=== PATIENT | male | born 1950 | race Caucasian/White ===

== ENCOUNTER → 2016-04-25 | Day surgery (SDC) | payer BC ==
[2016-04-02 09:31] VITALS: Ht 177.8 cm; Wt 109.1 kg
[~2016-04-25] VITALS: Ht 177.8 cm; Wt 109.1 kg
[~2016-04-25] MED LIST: AMLO-110 PO; ASPI81CH8 PO; ATOR10TA88 PO; BUPIVACAINE 0.25% 2.5MG/ML PF 10 ML VIAL INFIL ONE; GLC/500 PO; METF500T5 PO; MULT-190 PO; NRN/300 PO; QUIN40TA PO
--- NOTE | 2016-04-25 12:49 | History & Physical Bridge - [place] ---
H&P Re-Evaluation Bridge Note: I have examined the patient, reviewed the History & Physical and in the interval since the performance of the History & Physical I have noted the following changes of clinical significance: No changes noted
[2016-04-25] MEDS: LIDOCAINE HCL 1% 20 ML VIAL ONE (13:21)
[2016-04-25 13:50] VITALS: TEMP 36.7
--- NOTE | 2016-04-25 13:59 | Discharge Instructions ---
Discharge Instructions Visit Reason for Visit: Low Back Pain Discharge Discharge Diagnosis / Problem: low back pain Discharge Goals Goal(s): Decrease discomfort, Improve function Activity Recommendations Activity Limitations: resume your previous activity Anesthesia . Post Anesthesia Instructions: If you have had General Anesthesia or IV Sedation: * Do not drive today. * Resume driving when surgeon permits. * Do not make important decisions or sign legal documents today. * Call surgeon for: 1. Temperature elevations greater than 101 degrees F. 2. Uncontrollable pain. 3. Excessive bleeding. 4. Persistent nausea and vomiting. 5. Medication intolerance (nausea, vomiting or rash). * For nausea and vomiting use only clear liquids such as: tea, soda, bouillon until nausea subsides, then gradually increase diet as tolerated. * If you have any concerns or questions, call your surgeon's office. If physician is unavailable and it is an emergency, call 911 or go to the nearest emergency room. . Diet Recommendations Recommended Home Diet: resume previous diet Procedures Procedures Performed: Bilateral L4-5 Radio Frequency Lesioning Pending Studies Studies pending at discharge: no Medical Emergencies . Who to Call and When: Medical Emergencies: If at any time you feel your situation is an emergency, please call 911 immediately. . Non-Emergent Contact Non-Emergency issues call your: Specialist . . "Provider Documentation" section prepared by Nate Hobbs.
[2016-04-25 14:02] VITALS: BP 141/86; PULSE 61; O2SAT 95
--- NOTE | 2016-04-25 15:07 | OPERATIVE REPORT ---
DATE OF OPERATION: 04/25/2016 PREOPERATIVE DIAGNOSES: Chronic low back pain, bilateral L4-5 facet arthropathy. POSTOPERATIVE DIAGNOSES: Same. PROCEDURE: Bilateral L4-5 radiofrequency denervation under fluoroscopic guidance. INDICATIONS FOR PROCEDURE: The patient is a 66-year-old white male who presents with a 30-year history of low back pain. He has had denervation procedures in the past that have provided him upwards of 10 months of relief. He presents today for a denervation procedure bilaterally at L4-5 which showed significant facet hypertrophy and a joint fluid signal on the imaging studies. PHYSICAL EXAMINATION: GENERAL: Pleasant male, seated comfortably, in no apparent distress. MUSCULOSKELETAL: He has tenderness to palpation of his lower lumbar facet area. He has increased discomfort with extension. He has no problems with flexion. He has normal lower extremity strength. Sensation intact distally at the L4, L5, S1 dermatomes. Maneuvers, negative seated straight leg raises. CONSENT: Verbal and written consent was obtained from the patient. Risks and benefits were reviewed. Risks include but are not limited to abscess and allergic reaction. The patient wishes to proceed. DESCRIPTION OF PROCEDURE: The patient was taken back to the special procedures room of the [facility] where he was maintained in a prone position. Backside was cleansed with Betadine x3 and a dry sterile dressing was applied. Fluoroscope was used to identify the L4-5 transverse processes on the left. The overlying skin was anesthetized with 1.25 mL of lidocaine 1% with a 25-gauge 1.5-inch needle. A 22-gauge 10 cm Pee needle was then contacted the targets at each site. He had sensory stimulation that was felt at a threshold of 0.2 volts at both the L4 and L5 transverse process on the left. Motor stimulation provoked robust paraspinal spasms at L4 and also at L5, nothing down the leg. He underwent anesthetization with 1 mL of lidocaine 1% at each target site and then denervation of 80 degrees 100 seconds x2 at each site and then anesthetization with bupivacaine 1 mL of 0.25% at each site. The right L4 and L5 transverse process junctions were then fluoroscopically identified. The overlying skin was anesthetized with 1.25 mL of lidocaine 1% with a 25-gauge 1.5-inch needle. A 22-gauge 10 cm [place] needle contacted the bony target at each site and he had sensory stimulation of 0.4 millivolts at the L4 transverse process and 0.2 at the L5 transverse process. Motor stimulation provoked again robust paraspinal spasms greater at L4 than L5. He had anesthetization with 1 mL of lidocaine at each site prior to denervation of 80 degrees 100 seconds x2 at each site and then each site was injected with bupivacaine 0.25% 1 mL. Procedure was well tolerated. DISPOSITION: 1. The patient is taken out into the discharge recovery area where he will be discharged home once discharge criteria have been met. 2. Follow up in the [facility] office in 2-4 weeks. I attest to the content of the Intraoperative Record and any orders documented therein. Any exceptio ns are noted below.
== END | disposition home or self-care (01) ==
LOC: X.SURG 12:04
PROVIDERS: ATTEND Physical Medicine & Rehabilitation
DX: M47.817 Spondylosis without myelopathy or radiculopathy, lumbosacral region (principal); G89.29 Other chronic pain; I10 Essential (primary) hypertension; Z79.82 Long term (current) use of aspirin; Z87.891 Personal history of nicotine dependence

== ENCOUNTER → 2016-06-05 | Day surgery (SDC) | payer BC ==
[2016-05-14 15:01] VITALS: Ht 177.8 cm; Wt 109.1 kg
[~2016-06-05] VITALS: Ht 177.8 cm; Wt 109.1 kg
[~2016-06-05] MED LIST changes: -BUPIVACAINE 0.25% 2.5MG/ML PF 10 ML VIAL INFIL ONE; +IOPAMIDOL INJ 61% 15 ML VIAL ONE; +LIDOCAINE HCL 1% MPF 5 ML VIAL ONE; -METF500T5 PO; -MULT-190 PO; -QUIN40TA PO; +SODIUM CHLORIDE 0.9% INJ 10 ML VIAL ONE
[2016-06-05 14:54] VITALS: TEMP 37.4
--- NOTE | 2016-06-05 15:01 | Discharge Instructions ---
Discharge Instructions Date of Service Jun 05, 2016. Visit Reason for Visit: Low Back Pain Discharge Discharge Diagnosis / Problem: right leg pain Discharge Goals Goal(s): Decrease discomfort, Improve function Medications Stopped Medications Name(s): Asa 81 mg daily, last dose Friday06/02/16 Activity Recommendations Activity Limitations: resume your previous activity Anesthesia . Post Anesthesia Instructions: If you have had General Anesthesia or IV Sedation: * Do not drive today. * Resume driving when surgeon permits. * Do not make important decisions or sign legal documents today. * Call surgeon for: 1. Temperature elevations greater than 101 degrees F. 2. Uncontrollable pain. 3. Excessive bleeding. 4. Persistent nausea and vomiting. 5. Medication intolerance (nausea, vomiting or rash). * For nausea and vomiting use only clear liquids such as: tea, soda, bouillon until nausea subsides, then gradually increase diet as tolerated. * If you have any concerns or questions, call your surgeon's office. If physician is unavailable and it is an emergency, call 911 or go to the nearest emergency room. . Diet Recommendations Recommended Home Diet: resume previous diet Procedures Procedures Performed: LUMBAR EPIDURAL STEROID INJECTION Pending Studies Studies pending at discharge: no Medical Emergencies . Who to Call and When: Medical Emergencies: If at any time you feel your situation is an emergency, please call 911 immediately. . Non-Emergent Contact Non-Emergency issues call your: Specialist . . "Provider Documentation" section prepared by Nate Hobbs.
[2016-06-05 15:08] VITALS: BP 146/86; PULSE 58; O2SAT 94
--- NOTE | 2016-06-05 16:01 | OPERATIVE REPORT ---
DATE OF OPERATION: 06/05/2016 PREOPERATIVE DIAGNOSES: Lumbar stenosis with a right L5 radiculopathy and stenosis at L4-L5. POSTOPERATIVE DIAGNOSES: Same. PROCEDURE: Right paramedian L4-L5 interlaminar epidural steroid injection under fluoroscopic guidance. INDICATIONS: The patient is a 66-year-old white male who presents today for an epidural injection. He received a facet denervation, reported that more than half the pain was gone from the left side. The right side was rather unchanged. He is describing more radicular sensation down the right side and he was seen by his surgeon in [place] in followup and it was suggested that he undergo an epidural as it may have been radicular based pain on this side more facet on the left. He presents today for a lumbar epidural steroid injection to provide him with relief of radicular pain. PHYSICAL EXAMINATION: GENERAL: Pleasant male seated comfortably, in no apparent distress. MUSCULOSKELETAL: He had limitations and reproduction of pain into the back and buttocks with extension. No problems with flexion. He had normal lower extremity strength. Negative seated straight leg raises, intact sensation distally at the L4, L5, S1 dermatomes. CONSENT: Verbal and written consent was obtained from the patient. Risks and benefits were reviewed. Risks include, but are not limited to epidural abscess, epidural hematoma, allergic reaction, and dural puncture. The patient wishes to proceed. DESCRIPTION OF PROCEDURE: The patient was taken back to the special procedures room of the [facility], where he was maintained in a prone position. Backside was cleansed with Betadine x3 and a dry sterile dressing was applied. Fluoroscope was used to obtain a image of the back. The overlying area at the L4-L5 interlaminar space on the right side was then anesthetized with 4 mL of lidocaine 1% with a 25-gauge 1.5-inch needle. A 22-gauge 3.5-inch Tuohy needle was then directed down towards the intralaminar space. It was advanced under lateral fluoroscopic guidance and loss of resistance was noted at a depth of 7.5 to almost 8 cm. Isovue-300 contrast 1 mL was injected in which demonstrated epidural uptake pattern, which was confirmed with both AP and lateral views. He then underwent injection after negative aspiration of 40 mg of Depo-Medrol and 4 mL of preservative free sodium chloride. Injection was well tolerated. DISPOSITION: 1. The patient is taken out into the discharge recovery area, where he will be discharged home once discharge criteria have been met. 2. Follow up in the [facility] office in 2-4 weeks. I attest to the content of the Intraoperative Record and any orders documented therein. Any exceptio ns are noted below.
== END | disposition home or self-care (01) ==
LOC: X.SURG 13:37
PROVIDERS: ATTEND Physical Medicine & Rehabilitation
DX: M48.06 Spinal stenosis, lumbar region (principal); M54.16 Radiculopathy, lumbar region

== ENCOUNTER → 2016-10-09 | Day surgery (SDC) | payer BC ==
[2016-09-19 08:40] VITALS: Ht 177.8 cm; Wt 109.1 kg
[~2016-10-09] VITALS: Ht 177.8 cm; Wt 109.1 kg
[~2016-10-09] MED LIST changes: -NRN/300 PO
[2016-10-09 13:52] VITALS: TEMP 37
--- NOTE | 2016-10-09 13:58 | Discharge Instructions ---
Discharge Instructions Date of Service Oct 09, 2016. Visit Reason for Visit: Lumbar Radiculopathy Discharge Discharge Diagnosis / Problem: low back pain Discharge Goals Goal(s): Decrease discomfort, Improve function Medications Stopped Medications Name(s): ASA last dose 6 days ago Activity Recommendations Activity Limitations: resume your previous activity Anesthesia . Post Anesthesia Instructions: If you have had General Anesthesia or IV Sedation: * Do not drive today. * Resume driving when surgeon permits. * Do not make important decisions or sign legal documents today. * Call surgeon for: 1. Temperature elevations greater than 101 degrees F. 2. Uncontrollable pain. 3. Excessive bleeding. 4. Persistent nausea and vomiting. 5. Medication intolerance (nausea, vomiting or rash). * For nausea and vomiting use only clear liquids such as: tea, soda, bouillon until nausea subsides, then gradually increase diet as tolerated. * If you have any concerns or questions, call your surgeon's office. If physician is unavailable and it is an emergency, call 911 or go to the nearest emergency room. . Diet Recommendations Recommended Home Diet: resume previous diet Procedures Procedures Performed: Lumbar Epidural Steroid Injection Pending Studies Studies pending at discharge: no Medical Emergencies . Who to Call and When: Medical Emergencies: If at any time you feel your situation is an emergency, please call 911 immediately. . Non-Emergent Contact Non-Emergency issues call your: Specialist . . "Provider Documentation" section prepared by Nate Hobbs. .
[2016-10-09 14:04] VITALS: BP 130/79; PULSE 58; O2SAT 95
--- NOTE | 2016-10-09 14:14 | OPERATIVE REPORT ---
DATE OF OPERATION: 10/09/2016 PREOPERATIVE DIAGNOSES: Chronic lumbar radiculopathy, right side; L4-L5 disk disease and L5-S1 disk disease. POSTOPERATIVE DIAGNOSES: Same. PROCEDURE: Right paramedian L5-S1 intralaminar epidural steroid injection under fluoroscopic guidance. INDICATIONS: The patient is a 66-year-old white male who has had an epidural steroid injection done as well as denervation with 75% improvement of his pain. He was evaluated by a sales specialist in [place], Dr. Felix, who felt that another epidural could provide him with additional relief. He presents today for an epidural steroid injection to provide him with hopeful additional relief. PHYSICAL EXAMINATION: Pleasant male seated comfortably. He has no tenderness to palpation of his lumbar paraspinal muscles. No issues with forward flexion or extension. He has no weakness and intact sensation with negative seated straight leg raises. CONSENT: Verbal and written consent was obtained from the patient. Risks and benefits were reviewed. Risks include, but are not limited to epidural abscess, epidural hematoma, allergic reaction, and dural puncture. The patient wishes to proceed. DESCRIPTION OF PROCEDURE: The patient was taken back to the special procedures room of the [facility], where he was maintained in a prone position. Backside was cleansed with Betadine x3 and a dry sterile dressing was applied. Fluoroscope was used to identify the L5-S1 intralaminar space. Overlying skin on the right side was anesthetized with 4 mL of lidocaine 1% with a 25-gauge 1-1/2 inch needle. A 22-gauge 3-1/2 inch Tuohy needle was then directed down towards the intralaminar space. It was advanced under lateral fluoroscopic guidance. Loss of resistance was noted at a depth of 6.5 cm. Isovue-300 contrast 1 mL was injected in which demonstrated epidural uptake pattern. He then underwent injection after negative aspiration of 40 mg of Depo-Medrol and 4 mL of preservative free sodium chloride. Injection was well tolerated. DISPOSITION: 1. The patient was taken out into the discharge recovery area, where he will be discharged home once discharge criteria have been met. 2. Follow up in the [facility] office in 2-4 weeks. I attest to the content of the Intraoperative Record and any orders documented therein. Any exception s are noted below.
== END | disposition home or self-care (01) ==
LOC: X.SURG 12:31
PROVIDERS: ATTEND Physical Medicine & Rehabilitation
DX: M54.5 Low back pain (principal); M54.16 Radiculopathy, lumbar region; G89.29 Other chronic pain; Z79.82 Long term (current) use of aspirin

== ENCOUNTER → 2017-06-12 | Day surgery (SDC) | payer BC ==
[2017-06-02 15:22] VITALS: Ht 177.8 cm; Wt 109.1 kg
[~2017-06-12] VITALS: Ht 177.8 cm; Wt 109.1 kg
[~2017-06-12] MED LIST changes: +ATOR10TA82 PO; -ATOR10TA88 PO
--- NOTE | 2017-06-12 13:13 | [facility] Post Operative Brief Note ---
Immediate Operative Summary Operative Date Jun 12, 2017. Pre-Operative Diagnosis Lumbar radiculopathy Post-Operative Diagnosis Same Procedure(s) Performed Lumbar Epidural Steroid Injection Surgeon Dr Nate Hobbs Bar Assistant Surgeon(s) None Estimated Blood Loss 0 Findings Consistent with Post-Op Diagnosis Specimens NA Drains None Anesthesia Type Local Complication(s) none Disposition Disposition:
[2017-06-12 13:15] VITALS: TEMP 37.3
--- NOTE | 2017-06-12 13:15 | Discharge Instructions ---
Discharge Instructions Date of Service Jun 12, 2017. Visit Reason for Visit: Lumbar Radiculopathy Discharge Discharge Diagnosis / Problem: low back and buttocks pain Discharge Goals Goal(s): Decrease discomfort, Improve function Medications Stopped Medications Name(s): ASA/ADVIL- LAST DOSE 1 WEEK AGO Activity Recommendations Activity Limitations: resume your previous activity Anesthesia . Post Anesthesia Instructions: If you have had General Anesthesia or IV Sedation: * Do not drive today. * Resume driving when surgeon permits. * Do not make important decisions or sign legal documents today. * Call surgeon for: 1. Temperature elevations greater than 101 degrees F. 2. Uncontrollable pain. 3. Excessive bleeding. 4. Persistent nausea and vomiting. 5. Medication intolerance (nausea, vomiting or rash). * For nausea and vomiting use only clear liquids such as: tea, soda, bouillon until nausea subsides, then gradually increase diet as tolerated. * If you have any concerns or questions, call your surgeon's office. If physician is unavailable and it is an emergency, call 911 or go to the nearest emergency room. . Diet Recommendations Recommended Home Diet: resume previous diet Procedures Procedures Performed: Lumbar Epidural Steroid Injection Pending Studies Studies pending at discharge: no Medical Emergencies . Who to Call and When: Medical Emergencies: If at any time you feel your situation is an emergency, please call 911 immediately. . Non-Emergent Contact Non-Emergency issues call your: Specialist . . "Provider Documentation" section prepared by Nate Hobbs. .
[2017-06-12 13:40] VITALS: BP 125/72; PULSE 59; O2SAT 95
--- NOTE | 2017-06-12 14:39 | OPERATIVE REPORT ---
DATE OF OPERATION: 06/12/2017 PREOPERATIVE DIAGNOSIS: Lumbar stenosis with chronic low back pain and proximal radicular pain. POSTOPERATIVE DIAGNOSIS: Same. PROCEDURE: Right paramedian L5-S1 intralaminar epidural steroid injection under fluoroscopic guidance. INDICATIONS: The patient is a 67-year-old white male who has chronic low back pain who has responded favorably to denervations and also epidurals for radicular pain. Last one was June 12 a year ago. He is having some increasing problems with radicular sensations proximally into the buttocks and presents today for an epidural to provide him with relief. PHYSICAL EXAMINATION: GENERAL: Pleasant male seated comfortably. MUSCULOSKELETAL: Lumbar paraspinal muscles were palpated and noted to be nontender. He had normal motor and sensory exam of the lower extremity. Negative seated straight leg raises. CONSENT: Verbal and written consent was obtained from the patient. Risks and benefits were reviewed. Risks include but are not limited to epidural abscess, epidural hematoma, allergic reaction, dural puncture. The patient wishes to proceed. PROCEDURE: The patient was taken back to the special procedures room of the [facility] where he was maintained in a prone position. Backside was cleansed with Betadine x3 and a dry sterile dressing was applied. Fluoroscope was used to identify the L5-S1 intralaminar space and overlying skin was anesthetized with 4 mL of lidocaine 1% with a 25 gauge 1.5-inch needle. A 22-gauge 3-1/2 inch Tuohy needle was then directed down towards the intralaminar space. It was advanced under lateral fluoroscopic guidance and loss of resistance was noted at a depth of just under 7 cm. Isovue 300 contrast 0.75 of a mL were injected in which demonstrated epidural uptake pattern which was confirmed with both AP and lateral views. Then underwent injection after negative aspiration of 40 mg Depo-Medrol and 4 mL of preservative free sodium chloride. Injection was well tolerated and reproduced a familiar pressure feeling in the back. DISPOSITION: 1. The patient is taken out into the discharge recovery area where he will be discharged home once discharge criteria have been met. 2. Follow up in the [facility] office in 4 weeks' time. I attest to the content of the Intraoperative Record and any orders documented therein. Any exception s are noted below.
== END | disposition home or self-care (01) ==
LOC: X.SURG 12:08
PROVIDERS: ATTEND Physical Medicine & Rehabilitation
DX: M48.061 Spinal stenosis, lumbar region without neurogenic claudication (principal); M54.16 Radiculopathy, lumbar region; G89.29 Other chronic pain; Z98.890 Other specified postprocedural states; Z90.89 Acquired absence of other organs; E11.9 Type 2 diabetes mellitus without complications; I10 Essential (primary) hypertension; E78.5 Hyperlipidemia, unspecified; Z82.49 Family history of ischemic heart disease and other diseases of the circulatory system

== ENCOUNTER → 2017-06-17 | Outpatient (CLI) | payer BC ==
[~2017-06-17] MED LIST changes: +ASPI1CHW19 PO; -ASPI81CH8 PO; -IOPAMIDOL INJ 61% 15 ML VIAL ONE; -LIDOCAINE HCL 1% MPF 5 ML VIAL ONE; -SODIUM CHLORIDE 0.9% INJ 10 ML VIAL ONE
== END | disposition home or self-care (01) ==
LOC: C.RDSM 09:05
PROVIDERS: ATTEND Orthopaedic Surgery
DX: Z01.818 Encounter for other preprocedural examination (principal); M65.312 Trigger thumb, left thumb

== ENCOUNTER → 2017-06-23 | Day surgery (SDC) | payer BC ==
[2017-06-19 10:16] LABS: HEMOGLOBIN 15.6 g/dL (14.0-18.0); MEAN CELL VOLUME 93.2 fL (80-100); MEAN CORPUSCULAR HEMOGLOBIN 32.3 pg (25-34); MEAN CORPUSCULAR HGB CONC 34.7 g/dl (32-36); MEAN PLATELET VOLUME 8.9 fL (7.4-10.4); PLATELET COUNT 172 K/uL (130-400); RED CELL DISTRIBUTION WIDTH CV 12.7 % (11.5-14.5); RED CELL DISTRIBUTION WIDTH SD 43.6 fL (36.4-46.3)
[2017-06-19 10:44] LABS: BLOOD UREA NITROGEN 16 mg/dl (7-18); CALCIUM 9.1 mg/dl (8.5-10.1); CARBON DIOXIDE 29 mmol/L (21-32); CREATININE 0.87 mg/dl (0.60-1.40); GLUCOSE 90 mg/dl (70-99); SODIUM 137 mmol/L (136-145)
[2017-06-19 14:48] VITALS: Ht 177.8 cm; Wt 109.1 kg
[~2017-06-23] VITALS: Ht 177.8 cm; Wt 109.1 kg
[~2017-06-23] MED LIST changes: +ATROPINE SULFATE 0.1 MG/ML 5ML SYR IV PRN; +BUPIVACAINE 0.5 % 5 MG/1 ML PF 10ML VIAL ONE; +CEFAZOLIN 3000MG IV PUSH 22.5 ML IV SCH; +DEXAMETHASONE SOD INJ 4 MG/ML VIAL ONE; +FENTANYL CITRATE INJ 50 MCG/1 ML 2 ML VIAL IV PRN; +FENTANYL CITRATE INJ 50 MCG/1 ML 2 ML VIAL ONE; +LACTATED RINGER'S 1000ML 1,000 ML IV SCH; +LIDOCAINE HCL 1% 20 ML VIAL ONE; +LIDOCAINE HCL 2% 2 ML VIAL (20MG/ML) ONE; +METOCLOPRAMIDE HCL INJ 5 MG/ML 2 ML VIAL IV PRN; +MIDAZOLAM HCL 1 MG/ML 2ML VIAL ONE; +ONDANSETRON INJ 2 MG/ML 2 ML VIAL IV PRN; +ONDANSETRON INJ 2 MG/ML 2 ML VIAL ONE; +OXYCODONE/ACETAMINOPHEN 5-325 TAB PO PRN; +PROPOFOL IV EMULSION 10 MG/ML 20 ML VIAL IV ONE; +SODIUM CHLORIDE 0.9% 1000ML 1,000 ML IV SCH
--- NOTE | 2017-06-23 07:29 | [facility] Post Operative Brief Note ---
Immediate Operative Summary Operative Date Jun 23, 2017. Pre-Operative Diagnosis Left Trigger Thumb Post-Operative Diagnosis Same Procedure(s) Performed Left Trigger Thumb Release Surgeon Dr. Arriaza Santa'S Helper Surgeon(s) Chauncey Ashford PA-C Estimated Blood Loss 0 Findings Consistent with Post-Op Diagnosis Fluids (cc crystalloids) 500 cc Specimens None Drains None Anesthesia Type MAC Complication(s) none Disposition Accompanied Pt To Recovery: no Disposition: Recovery Room / PACU
--- NOTE | 2017-06-23 07:33 | [facility] Operative Report ---
Operative Report Operative Date Jun 23, 2017. Pre-Operative Diagnosis Left Trigger Thumb Post-Operative Diagnosis Same Procedure(s) Performed Left Trigger Thumb Release Surgeon Dr. Arriaza Development Advisor Surgeon(s) Chauncey Ashford PA-C Estimated Blood Loss 0 Fluids 500 cc Specimens None Drains None Anesthesia Type MAC Complication(s) none Disposition no Recovery Room / PACU Description of Procedure I was present during entire procedure. Please see Dr. Arriaza's note for specifics. I attest to the content of the Intraoperative Record and any orders documented therein. Any exceptions are noted below.
[2017-06-23 07:34] VITALS: TEMP 37
--- NOTE | 2017-06-23 07:38 | Discharge Instructions ---
Discharge Instructions Date of Service Jun 23, 2017. Admission Reason for Admission: Left Trigger Thumb Discharge Discharge Diagnosis / Problem: Left Trigger Thumb Discharge Goals Goal(s): Decrease discomfort, Improve function, Increase independence Activity Recommendations Activity Limitations: as noted below Lifting Limitations: no more than 5 pounds (with left hand) Exercise/Sports Limitations: until after follow-up appointment May Resume Sexual Activity: when tolerated Shower/Bathe: tomorrow, keep incision dry Driving or Machine Use: resume 1 day after discharge Weightbearing Status: Left partial (with left hand (no more than 5 lbs)) . Instructions / Follow-Up Instructions / Follow-Up Post-operative Instructions Dear Patient and Family/Friends, Before you are discharged from the hospital, it is important to know what to expect when you get home after surgery. To that end, we have created this sheet of discharge instructions which covers many commonly asked questions. Make sure you go through this sheet in its entirety with your nurse before you are discharged. Please note that we will go over the specifics of your surgery and recovery when you return for your first post-operative visit. Sincerely, Dr. Arriaza Pain Expect to be in a fair amount of pain after surgery. Remember, our goal is not to eliminate your pain, but to make it tolerable. It is a good idea to stay ahead of your pain by taking the medications you were prescribed once you get home. Typically, the pain starts improving 3-7 days after surgery. You should start weaning off the narcotic pain medication (oxycodone, hydrocodone, hydromorphone, morphine) as soon as your pain improves. Please call our office if your pain is not adequately controlled. Ice Ice your operative site at least 5 times a day for 15-30 minutes at a time. Make sure you have a thin cloth between the ice or cooling unit and your skin to prevent danielson bite. This is especially important if you received a nerve block. Continue icing your operative site for the first 5-7 days after surgery , then as needed. Diet/Nausea/Vomiting Start by drinking clear liquids and eating crackers. If you can tolerate this, then you may resume your normal diet. If you feel nauseated or vomit, take Zofran/ondansetron (if prescribed). Please call our office if you have intractable nausea or vomiting, or, if after hours, you may go to the Emergency Room for help. Constipation Constipation is a common side effect of narcotic pain medication. If you have not had a bowel movement within 2 days after surgery, we recommend purchasing an over the counter laxative such as Milk of Magnesia, Dulcolax, or Miralax from a local pharmacy, and taking it as instructed. Call our clinic if any questions. Weight bearing and Range of Motion. Do not bear any weight through your operative extremity immediately after surgery. If you had upper extremity surgery, do not lift anything with that arm. If you are in a knee brace, keep it locked in place until your follow-up. We will discuss your weight bearing, range of motion, and lifting restrictions in detail at your first post-operative appointment. Continuous Passive Motion (CPM) Machine If you were prescribed a CPM machine, it will start after your first post- operative appointment, at which time we will give you instructions on the range of motion settings and duration of treatment Physical therapy You will be given a prescription for physical therapy or occupational therapy at your first post-operative appointment. Typically, patients start therapy within 1 week of surgery Wound care and showering We will inspect your wound at your first post-operative visit, and may do a dressing change at that time. Most patients will be in a water-proof dressing that is removed 14 days after surgery. It is normal to see some dried blood on the dressing. Do not remove your dressing, paper strips or sutures yourself unless you are given permission. Showering is allowed the day after surgery. Do not scrub or remove any dressings. The wound should not be submerged underwater (i.e. in a bathtub or pool) until 4 weeks after surgery Driving You may not drive while taking narcotic pain medication or while in a cast, splint, sling or brace. You, the patient, need to make the final determination about when you are safe to drive, however, the earliest you may consider driving after surgery is below: Hand/Wrist/Elbow Surgery: 3 days Shoulder Surgery: 2 weeks Hip,/Knee/Ankle Surgery: 4 weeks Fracture repair: 6 weeks Return to Work Your return to work depends on what surgery was done and what type of work you do. Please bring any paperwork your employer needs completed to your first post -operative visit. Also, bring a description of your job duties, as this helps us to understand what risks you may face at work. Travel Avoid long distance travel (greater than 1 hour) in airplanes and cars for the first 6 weeks after surgery. If you must travel, you need to have a Doppler ultrasound done before you travel to rule out a blood clot in your legs. Follow-up You should have a follow-up appointment already scheduled 1-2 days after surgery. If not, please contact our office to make this appointment before you leave the hospital. When to call the office It is normal to have swelling and bruising in the limb that was operated on. This will improve with time. It is also normal to have fevers for the first 2 days after surgery. Reasons you should call your doctor include: Uncontrolled pain; Nausea, vomiting, or constipation that does not improve with medication; Fevers over 101.5, chills, sweats; Drainage or bleeding from the wound; Foul odor; Spreading areas of redness; Any other concerns Current Hospital Diet Patient's current hospital diet: Discharge Diet Recommended Diet: Regular Diet Procedures Procedures Performed: Left Trigger Thumb Release Pending Studies Studies pending at discharge: no Medical Emergencies . Who to Call and When: Medical Emergencies: If at any time you feel your situation is an emergency, please call 911 immediately. . Non-Emergent Contact Non-Emergency issues call your: Primary Care Provider Call Non-Emergent contact if: you have a fever, temperature is above 101.5, your pain is not controlled, your pain is worsening, wound has increased drainage, you have any medication questions . "Provider Documentation" section prepared by Brice Ashford. . [place] Drug Monitoring Program Search Results: patient reviewed within database, no issues identified, see additional documentation
--- NOTE | 2017-06-23 07:49 | Anesthesia Progress Nt - [facility] ---
Anesthesia Post Op Note Date & Time Jun 23, 2017 at 07:49 Vital Signs Pain Intensity: 0 Vital Signs Past 12 Hours Date Time Temp Pulse Resp B/P (MAP) Pulse Ox O2 Delivery O2 Flow Rate FiO2 06/23/17 07:34 37.0 54 16 112/72 (85) 95 Room Air 06/23/17 06:29 36.7 54 18 159/79 (105) 94 Room Air Notes Mental Status: alert / awake / arousable, participated in evaluation Pt Amnestic to Procedure: Yes Nausea / Vomiting: adequately controlled Pain: adequately controlled Airway Patency, RR, SpO2: stable & adequate BP & HR: stable & adequate Hydration State: stable & adequate Anesthetic Complications: no major complications apparent
[2017-06-23 07:57] VITALS: BP 128/79; PULSE 54; O2SAT 94
--- NOTE | 2017-06-23 09:03 | OPERATIVE REPORT ---
DATE OF OPERATION: 06/23/2017 PREOPERATIVE DIAGNOSIS: Left trigger thumb. POSTOPERATIVE DIAGNOSIS: Left trigger thumb. PROCEDURE: Left trigger thumb release. SURGEON: Dylan Arriaza MD FEED BLENDER: Chauncey Ashford ESTIMATED BLOOD LOSS: Zero. IV FLUIDS: 900 mL crystalloid. SPECIMENS: None. COMPLICATIONS: None. IMPLANTS: None. INDICATIONS: Mr. Alarcon is a 67-year-old right hand-dominant male who has had triggering in his left thumb for the past couple of months. He has attempted conservative management with a thumb spica splint and [id number] anti-inflammatories that did not give him any help. His physical exam is consistent with a trigger thumb when he can actively demonstrate in clinic as well as a palpable and painful nodule at the region of the A1 eufemia. I had a long discussion with him about the risks and benefits of surgery, alternatives to surgery, and expected outcomes. After reviewing all these, he elected to proceed with surgery. All questions were answered. Informed consent was signed. OPERATIVE FINDINGS: A swollen nodule was visible at the level of the A1 eufemia within the FPL tendon sheath. This was clearly impinging on the A1 eufemia. After full release of the A1 eufemia, the patient could actively flex and extend the IP joint of his thumb without any further triggering. DESCRIPTION OF THE OPERATION: The patient was identified in the preoperative holding area where his surgical site was marked. He was brought back to the main operating room where he was placed on the operating room table and a timeout was called. We then cleansed the surgical site with alcohol and injected 5 mL of 1:1 mixture of 1% lidocaine and 0.5% bupivacaine without epinephrine. The arm was then prepped and draped in the normal sterile fashion. Prior to incision, another timeout was called. All in the room were in agreement. We began by exsanguinating the limb with an Esmarch bandage. The hand was placed in the Lead Hand and a 2-cm long incision was made through the MCP joint flexion crease. We dissected down through the subcutaneous tissues, identifying the radial digital nerve to the thumb. This was protected throughout the case. The flexor tendon sheath of the FPL was then identified. The nodule was clearly visible within the FPL tendon sheath as well as the proximal and distal margins of the A1 eufemia. Once these were identified, the eufemia was incised in line with the midline of the tendon. The edges of the eufemia splayed apart nicely. We then took his hand out of the Lead Hand and asked him to actively flex and extend his thumb. The patient confirmed there was no more triggering. At this point, the wound was irrigated with copious amounts of normal saline. The skin was closed using 4-0 nylon sutures in a superficial fashion so as to only go through the dermis. A sterile dressing was placed with Xeroform, 2 x 2, and Tegaderm dressing. The patient was then transferred to the recovery room in stable condition. POSTOPERATIVE COURSE: The patient will be discharged home from the recovery room. He will return to our clinic tomorrow to start working with occupational therapy after surgery. He will see Chauncey Ashford at his 2-week postop to have the sutures removed. I will see him in a 6-week postop appointment. No DVT prophylaxis is indicated for this small upper extremity joint surgery. I attest to the content of the Intraoperative Record and any orders documented therein. Any exception s are noted below.
== END | disposition home or self-care (01) ==
LOC: X.SURG 06-19 09:20
PROVIDERS: ATTEND Orthopaedic Surgery
DX: M65.312 Trigger thumb, left thumb (principal); I10 Essential (primary) hypertension; E11.9 Type 2 diabetes mellitus without complications; E78.5 Hyperlipidemia, unspecified; E66.9 Obesity, unspecified; Z98.890 Other specified postprocedural states; Z90.89 Acquired absence of other organs; Z79.82 Long term (current) use of aspirin; Z79.899 Other long term (current) drug therapy; Z79.84 Long term (current) use of oral hypoglycemic drugs; Z82.49 Family history of ischemic heart disease and other diseases of the circulatory system

== ENCOUNTER 2021-08-01 05:05 | Observation (INO) ==
--- NOTE | 2021-07-02 09:29 | PAT Medication Instructions ---
Medication Instructions Date of Service July 02, 2021 Home Medications amlodipine 5 mg tablet 5 mg PO QAM aspirin 81 mg tablet,delayed release (Aspir-Low) 81 mg PO PM atorvastatin 10 mg tablet 10 mg PO PM metformin 500 mg tablet 500 mg PO BID quinapril 40 mg tablet 40 mg PO BID Ocuvite 1 cap PO QAM acetaminophen 325 mg tablet 325 mg PO BID ibuprofen 200 mg tablet 400 mg PO BID ASK your surgeon for instructions ibuprofen 200 mg tablet 400 mg PO BID STOP taking 2 weeks before surgery (or as soon as possible if surgery is within 2 weeks) Ocuvite 1 cap PO QAM DO NOT take the morning of surgery metformin 500 mg tablet 500 mg PO BID quinapril 40 mg tablet 40 mg PO BID Take morning of surgery With a small sip of water, OTHERWISE NOTHING TO EAT OR DRINK AFTER MIDNIGHT: amlodipine 5 mg tablet 5 mg PO QAM acetaminophen 325 mg tablet 325 mg PO BID (okay to take up to 4 hours prior to surgery if needed) Take evening before surgery aspirin 81 mg tablet,delayed release (Aspir-Low) 81 mg PO PM (continue as normal unless told otherwise by surgeon) atorvastatin 10 mg tablet 10 mg PO PM metformin 500 mg tablet 500 mg PO BID quinapril 40 mg tablet 40 mg PO BID acetaminophen 325 mg tablet 325 mg PO BID Other Notes If you have any questions please call us at [phone] or [phone] or [phone] or [phone]
--- NOTE | 2021-07-04 08:49 | Anesthesiology Consultation ---
Date of Service July 04, 2021 Assessment & Plan (1) Encounter for pre-operative examination: - COVID screening: Per assessment on 07/04: No known COVID-19 positive contacts or current COVID-19 related symptoms. Travel screen negative. Patient jamel macdonald. Surgeon arranging preop COVID testing. Awaiting results. - Outpatient joint pathway: Per OR booking comments, plan for outpatient joint program. Patient seen at [facility] 07/04. Patient reports strong home support post- operatively. Patient is an acceptable candidate to proceed as possible outpatient joint pathway pending perioperative course. Surgeon's office arranging post-op home management. Chart Review Chart Review: Acceptable Risk for Surgery and Patient seen in Pre Admission Testing Teaching & Discussion Pre-Anesthesia Teaching/Discussion Notes: Instructed NPO after midnight before surgery,except medications with 15 cc of water. Medication instructions provided according to the [facility] guidelines. History Surgery Operation Date: 08/01/21 12:45 Proposed Procedures p OP: Left Total Hip Arthroplasty - Wolf Varela MD Height/Weight Height: 5 ft 10 in Weight: 105.5 kg Allergies Allergy/AdvReac Type Severity Reaction Status Date / Time No Known Allergies Allergy Verified 07/02/21 08:04 Medications Home Medications Medication Instructions Recorded Confirmed Last Taken amlodipine 5 mg tablet 5 mg PO QAM 01/13/18 07/02/21 11/20/20 aspirin 81 mg tablet,delayed 81 mg PO PM 01/13/18 07/02/21 11/16/20 release (Aspir-Low) atorvastatin 10 mg tablet 10 mg PO PM 01/13/18 07/02/21 11/20/20 metformin 500 mg tablet 500 mg PO BID 01/13/18 07/02/21 11/20/20 quinapril 40 mg tablet 40 mg PO BID 01/13/18 07/02/21 11/20/20 vit C 150 mg-vit E 30 unit-lutein 1 cap PO QAM 01/13/18 07/02/21 11/20/20 5 [id number] 3 150 mg capsule (Ocuvite) acetaminophen 325 mg tablet 325 mg PO BID 07/02/21 07/02/21 Unknown ibuprofen 200 mg tablet 400 mg PO BID 07/02/21 07/02/21 Unknown Past Medical History Medical History Arthritis Hyperlipidemia Hypertension Lumbar facet arthropathy with radiofrequency denervations Mouth breathing Due to hx nasal fracture No witnessed apneic events Osteoarthritis Prediabetes on Metformin Scoliosis Mild Exercise / Class Metabolic Activity II 4-5 Yardwork/Stairs/Walk up hill (one FS (no CP, no SOB)- lives in 3 story house) Past Family History Family History Grandmother Family history of diabetes mellitus Past Surgical History Surgical History History of adenoidectomy History of colonoscopy History of esophageal dilatation History of esophagogastroduodenoscopy (EGD) History of tonsillectomy History of tooth extraction Hx of rhinoplasty Trigger finger Left thumb trigger finger release (06/23/17): MAC at [facility] [place] Past Anesthesia History No Hx of Anesthesia Complications and No Family Hx of Anesthesia Complications History of PONV No Hx of PONV and No Hx of Motion Sickness Social History Smoking Status: Current every day smoker tobacco type: cigarettes Smoking cigarettes per day: 12-13 cigs/day Do You Dip or Chew Tobacco: No Hx Alcohol Use: Yes Alcohol type: beer and wine alcohol intake frequency: a few times a week Hx Substance Use: No substance use type: does not use Review of Systems Patient denies chest pain, shortness of breath, dyspnea on exertion, fever, chills, cough, wheezing, palpitations. Physical Exam Vital Signs VITALS BP 149/80 P 57 TEMP 98.0 SP02 96%RA RESP 16 PHYSICAL Full cervical extension range of motion. Full TMJ range of motion. TMD 3 finger breaths Mallampati Score 3 Dentition: intact, + crowns Lungs: clear throughout to auscultation Cardiac: regular rate and rhythm, no murmurs noted Spine: normal Carotid arteries: negative bruit Extremities: no edema Lab Results Anesthesia Preop Results Results Anesthesia Widget: WBC 6.08 K/uL (4.8-10.8) 07/04/21 Hgb 15.6 g/dL (14.0-18.0) 07/04/21 Hct 44.9 % (42-52) 07/04/21 Plt 176 K/uL (130-400) 07/04/21 Na 140 mmol/L (136-145) 07/04/21 K 4.9 mmol/L (3.5-5.1) 07/04/21 Cl 104 mmol/L (98-107) 07/04/21 CO2 30 mmol/L (21-32) 07/04/21 BUN 16 mg/dl (6-23) 07/04/21 Creat 0.90 mg/dl (0.6-1.4) 07/04/21 Glucose Level 116 mg/dl (70-99(Fasting)) H 07/04/21 PT 11.2 Seconds (9.0-12.0) 07/04/21 PTT 28.5 Seconds (21.0-31.0) 07/04/21 INR 1.1 (0.9-1.1) 07/04/21 HA1c 5.8 % (4.5-5.6) H 07/04/21 Blood Type O Positive 07/04/21 Antibody Screen NEGATIVE 07/04/21 Testing Electrocardiogram Date: 07/04/21 SB at 53bpm. Chest X-Ray Date: 07/04/21 FINDINGS: PA and lateral chest radiographs are obtained. No prior studies are available for comparison at the time of dictation. The heart is mildly enlarged. The pulmonary vasculature is noncongested. Enlargement of the central pulmonary arteries may represent pulmonary artery hypertension. Nonspecific interstitial thickening is likely chronic. No airspace consolidation or pleural effusion is identified. There is no pneumothorax. The skeletal structures are osteopenic. The bony thorax appears intact. IMPRESSION: Mild cardiomegaly with no active disease in the chest.
--- NOTE | 2021-07-29 12:28 | History and Physical Report ---
DATE OF ADMISSION: 08/01/2021. CHIEF COMPLAINT: Persistent left hip pain and discomfort. 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 He has a long history of left hip, leg and back problems. He has been seen and managed by Dr. Young, home stereo equipment installer, for quite some time. Over time, he has develo ped increased pain and discomfort in his hip. He has groin pain, thigh pain, buttock pain and back p ain. We did one injection which provided him just a little bit of relief for a couple days. Pain key s become more debilitating over time. He has difficulty putting his shoes and socks on. He limps mo re as the day goes on. He is ready to have his hip fixed. PAST MEDICAL HISTORY: 1. Hypertension. 2. Elevated cholesterol. 3. Diabetes, well controlled with A1c of 5.8. 4. Obesity with BMI of 34. 5. Half a pack year history of smoking. PAST SURGICAL HISTORY: None. ALLERGIES: None. CURRENT MEDICATIONS: 1. Amlodipine. 2. Metformin. 3. Quinapril. 4. Low-dose aspirin. 5. Ocuvite. 6. Atorvastatin. SOCIAL HISTORY: A 71-year-old male. He is . 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 Rare alcohol intake. He does smoke half a pack of cigarettes a day. He is diabetic. His diabetes is well controlled with a n A1c of 5.8. FAMILY HISTORY: Significant for heart disease and diabetes. REVIEW OF SYSTEMS: Significant for well controlled diabetes. Denies any chest pain or shortness of breath. No history of DVT or PE. No known bleeding problems. PHYSICAL EXAMINATION: GENERAL: Shows a pleasant middle-aged male. Looks to be in pretty good health. HEENT: Benign. NECK: Supple. No lymphadenopathy. LUNGS: Clear to auscultation. HEART: Regular rate and rhythm. ABDOMEN: Soft, nontender, nondistended. EXTREMITIES: Grossly neurovascularly intact except as follows. Examination of the left hip reveal patient walks with a slightly antalgic gait. He is about 0.5 cm s hort on the left side compared to right. He has pretty stiff hip with internal rotation and neutral at best. Negative straight leg raise. No knee effusion. X-RAYS: X-rays of the left hip were reviewed. It shows advanced left hip DJD. He has complete loss of superior joint space. He has osteophytes laterally. It has progressed over the past year. ASSESSMENT: A 71-year-old male with a fairly long history of left hip and back pain and discomfort, unresponsive to conservative treatment. Certainly he has significant amount of his pain and problems are coming from his hip. Undoubtedly he has some back issues as well. He has failed conservative tr eatment and would like to have his hip fixed. PLAN: We will take him to the operating room and do left total hip replacement. The risks and benef its of this procedure were explained to the patient include but not limited to DVT, PE, , infect ion, neurological injury, vascular injury, bleeding problem, pain, limited range of motion, stiffness , incomplete relief of symptoms, etc. The patient understands and desires to proceed. Informed cons ent was obtained. He is going to plan on staying in the hospital overnight. He will be discharged to home with [facility]. He knows to hold his metformin and quinapril the morning of surgery. We edwina l likely need to use a patch in the hospital due to his smoking history. Job ID: [id number]
[2021-08-01] MEDS ORDERED: TRANEXAMIC ACID 1,000 MG **IV Pre-op IV SCH (06:00)
[2021-08-01] MEDS ORDERED: ceFAZolin 2000MG 2,000 MG/15 ML SYR IV SCH (06:00)
[2021-08-01] MEDS ORDERED: Scopolamine 1 MG TDSY TD SCH (06:00)
[2021-08-01] MEDS ORDERED: ACETAMINOPHEN 500 MG TAB PO SCH (06:00)
[2021-08-01] MEDS ORDERED: FAMOTIDINE 20 MG TAB PO SCH (06:00)
[2021-08-01] MEDS ORDERED: LR 60ML/HR IV SCH (06:00)
[2021-08-01] MEDS ORDERED: LR 500ML BOLUS, THEN 15ML/HR IV SCH (06:00)
[2021-08-01] MEDS ORDERED: BUPIVACAINE 0.5 % 5 MG/1 ML PF 10ML VIAL ONE (06:23)
[2021-08-01] MEDS ORDERED: MIDAZOLAM HCL 1 MG/ML 2ML VIAL ONE (06:36)
[2021-08-01] MEDS ORDERED: fentaNYL citrate 100 MCG/2 ML VIAL ONE (06:36)
[2021-08-01] MEDS ORDERED: MoRPHine SULFATE PF 1 MG/ML 10 ML AMP/VIAL ONE (06:40)
[2021-08-01] MEDS ORDERED: BUPIVACAINE 0.5 % 5 MG/1 ML MPF 30ML VIAL ONE (06:46)
[2021-08-01] MEDS ORDERED: EPINEPHrine INJ 1 MG/ML AMP ONE (06:47)
--- NOTE | 2021-08-01 06:52 | History & Physical Bridge Note ---
Date of Service August 01, 2021 History & Physical Bridge Note I have examined the patient, reviewed the History & Physical and in the interval since the performance of the History & Physical I have noted the following changes of clinical significance: no changes noted
[2021-08-01] MEDS ORDERED: diphenhydrAMINE 50 MG/ML VIAL IV PRN (07:05)
[2021-08-01] MEDS ORDERED: LACTATED RINGER'S 500 ML IV PRN (07:05)
[2021-08-01] MEDS ORDERED: ePHEDrine sulfate 50 MG/ML AMP IV PRN (07:05)
[2021-08-01] MEDS ORDERED: NALBUPHINE HCL INJ 10 MG/ML AMP IV PRN (07:05)
[2021-08-01] MEDS ORDERED: NALOXONE HCL 0.4 MG/1 ML VIAL/CARP IV PRN (07:05)
[2021-08-01] MEDS ORDERED: MoRPHine SULFATE PF 1 MG/ML 10 ML AMP/VIAL INT SPINAL ONE (07:05)
[2021-08-01] MEDS ORDERED: MEPERIDINE HCL 25 MG/ML CARP/VIAL IV PRN (07:05)
[2021-08-01] MEDS ORDERED: ONDANSETRON INJ 2 MG/ML 2 ML VIAL IV PRN (07:05)
[2021-08-01] MEDS ORDERED: NALOXONE HCL 0.08 MG in SYRINGE 1.8 ML IV PRN (07:05)
[2021-08-01] MEDS ORDERED: NALOXONE HCL 1 MG in SODIUM CHLORIDE 0.9% 1000ML 1,000 ML IV PRN (07:05)
[2021-08-01] MEDS ORDERED: NO NARCOTICS OR SEDATIVES SCH (07:15)
[2021-08-01] MEDS ORDERED: DC INTRASPINAL MORPHINE SCH (07:15)
[2021-08-01] MEDS ORDERED: SODIUM CHLORIDE 0.9% 1000ML 1,000 ML IV SCH (07:15)
[2021-08-01] MEDS ORDERED: PROPOFOL IV EMULSION 10 MG/ML 20 ML VIAL IV ONE (07:46)
[2021-08-01] MEDS ORDERED: ePHEDrine sulfate 50 MG/ML SYR ONE (07:48)
--- NOTE | 2021-08-01 08:37 | Operative Report ---
PG Post Operative Report Pre & Post Diagnosis Operation Date: 08/01/21 07:00 Pre-Op Diagnosis: Left Hip Osteoarthritis Post-Op Diagnosis: Left Hip Osteoarthritis I identified the patient and participated in the time-out.: Yes Procedure Operation Date: 08/01/21 07:00 Actual Procedures p Left Total Hip Arthroplasty(Left) - Wolf Varela MD Surgeon Wolf Varela MD Hospital Laboratory Technician Brooks Guillermo PA-C Estimated Blood Loss 200 Findings Consistent with Post-Op Diagnosis Operative findings revealed advanced left hip DJD. He had significant joint effusion. He did have a delamination of the cartilage prickly of the acetabulum. A full-thickness cartilage loss. There are several loose bodies within the hip joint itself. Fluids 1600 cc Specimens Left femoral head sent for pathology Anesthesia Type Spinal MAC Complications none Disposition Accompanied Patient To Recovery: Yes Indications Patient is 71-year-old very active gentleman has had a several year history of increasing left hip pain discomfort got significantly worse over the past year. He describes groin pain thigh pain. Does have a history of back problems as well. He became more debilitated by his hip pain over time. Failed all conservative measures. X-rays reveal advanced left hip arthritis which has progressed over the past year. He elected proceed with surgical treatment of his hip. Description of Procedure Operative implants consist of: 1 Biomet G7 size 56 mm acetabular shell. 2. [place] hole scallop cutter machine. 3. 6.5 cancellous acetabular screws 1 of 35 mm in length and 1 of 30 mm length. 4. Highly cross-linked polyethylene liner with a 56 mm outer diameter and a 36 mm inner diameter. 5. DePuy Karaya size 13 KLA femoral stem. 6. A +5/36 mm ceramic articular ball. The patient was taken to the operating, identified, placed on the operating table supine position protectors were properly padded. IV antibiotics tried by anesthesia team. A spinal anesthetic and been implemented holding area. Moreira catheter was placed in sterile fashion. Patient was then placed in the right lateral decubitus position. An axillary roll was placed. Stulberg hip positioner was used for positioning. The left hip and leg were then prepped and draped in usual sterile fashion. Posterior lateral approach to the left hip was then performed through a curvilinear incision centered over the greater trochanter. Sharp dissection was carried through subcutaneous tissue down to the IT band gluteal fascia. The IT band gluteal fascia incised longitudinally in line with skin incision. The underlying greater bursa was excised. The piriformis and the external rotators along with the posterior hip joint capsule were then released from the posterior aspect the hip as a single layer. He had a significant external rotation contracture. Great care was taken throughout the procedure protect the sciatic nerve at all times. Hip was internally rotated and dislocated. Femoral neck osteotomy cut was made with Final Cut 15 mm above the lesser trochanter. Femoral head was removed and sent for pathology. The femur was retracted anteriorly. Attention drawn the acetabulum. The acetabular labrum was excised. Pulmonary fat was excised. Sequential reaming the acetabular was then performed begin with a size 47 and progressing up to a 55. I then reamed a little bit with a 56 reamer and placed a 56 mm cup in about 40 degrees lateral opening and 20 degrees of anteversion. It was fixed with two 6.5 cancellous acetabular screws. Trial liner was placed. Attention drawn the femur. The proximal femur was entered with a [employer] cutter followed by canal finder. Then broached begin the size 8 and progressing up to 13. Got excellent fit at 13. I then trialed the hip and the +5 articular ball provide full stability and full extension and external rotation and flexion to 9 degrees internal Tatian over 50 degrees. Leg length seemed appropriate. Soft tissue tension seemed appropriate. We elect to place these implants. All trial implants were removed. An apex hole scallop cutter machine was placed. Highly cross-linked polyethylene liner was placed. I DePuy size 13 KLA femoral stem was impacted in position. +5/36 mm ceramic articular ball was placed. Hip was located once again found to be stable. Attention drawn toward closing. The wound was irrigated scope soft and pulsatile lavage solution. I did inject locally with 60 cc of half percent Marcaine with epinephrine. The posterior capsule and external rotators were repaired through drill holes in the posterior trochanter as a single layer. The IT band gluteal fascia then closed #1 PDS suture in running fashion the subcutaneous tissue was then closed with 2 layers with a deep layer #1 Vicryl suture and subcutaneous tissue with 2-0 Dexon suture in a buried interrupted fashion. Skin was closed skin chelsy. Legs then cleaned dried and sterile dressing was Xeroform, 4 fours, sterile ABD pad and foam tape was applied. Patient then transferred to the recovery room in stable condition. Patient tolerated procedure well and there were no complications. Brooks Guillermo, my physician business banking sales assistant, was present for the entire procedure. His assistance was essential and required for appropriate patient positioning, prepping and draping, surgical exposure, performing the technical details of the operation, placement the implants, closure of the wound, and placement of the sterile bandage. I attest to the content of the Intraoperative Record and any orders documented therein. Any exceptions are noted below.
--- NOTE | 2021-08-01 09:12 | Anesthesiology Progress Note ---
Date of Service August 01, 2021 Anesthesia Post Procedure Vital Signs Vital Signs: Temp Pulse Pulse Resp BP BP Pulse Ox 08/01/21 09:00 97.2 F L 52 L 16 129/70 94 08/01/21 08:45 53 L 16 125/65 99 08/01/21 08:35 54 L 16 115/65 97 08/01/21 08:25 97.0 F L 58 L 16 118/56 L 98 08/01/21 05:50 98.1 F 68 18 174/81 H 96 Pain Intensity Left Hip: Pain Intensity: 2 Transfer of Care Handoff Completed per policy Notes Mental Status: alert / awake / arousable and participated in evaluation Patient Amnestic to Procedure: Yes Nausea / Vomiting: adequately controlled Pain: adequately controlled Airway Patency, RR, SpO2: stable & adequate BP & HR: stable & adequate Hydration State: stable & adequate Neuraxial Anesthesia: was administered and sensory block is resolving Anesthetic Complications: no major complications apparent and Pt Satisfied with anesthetic care
[2021-08-01] MEDS ORDERED: MAGNESIUM HYDROXIDE SUSP 30 ML UDC PO PRN (09:19)
[2021-08-01] MEDS ORDERED: bisacodyL 10 MG SUPP PR PRN (09:19)
[2021-08-01] MEDS ORDERED: DOCUSATE SODIUM/SENNA 50/8.6MG TAB PO SCH (09:19)
[2021-08-01] MEDS ORDERED: PHARMACY GLYCEMIC MGMT CONSULT PRN (09:19)
[2021-08-01] MEDS ORDERED: VIT C VIT E LUTEIN MIN OM PO SCH (09:19)
[2021-08-01] MEDS ORDERED: ALUMINUM/MAGNESIUM SUSP 30 ML UDC PO PRN (09:19)
[2021-08-01] MEDS ORDERED: CARBOHYDRATES FOR HYPOGLYCEMIA PO PRN (09:19)
[2021-08-01] MEDS ORDERED: DEXTROSE 50% 50 ML SYRINGE IV PRN (09:19)
[2021-08-01] MEDS ORDERED: GLUCOSE 40% GEL 15 GM TUBE PO PRN (09:19)
[2021-08-01] MEDS ORDERED: GLUCOSE 10 TABS/TUBE PO PRN (09:19)
[2021-08-01] MEDS ORDERED: GLUCAGON FOR INJ 1 MG VIAL SQ PRN (09:19)
[2021-08-01] MEDS: amLODIPine BESYLATE 5 MG TAB PO SCH (10:21)
[2021-08-01] MEDS: DOCUSATE SODIUM 100 MG CAP PO SCH ×2 (10:22→21:00)
[2021-08-01] MEDS: TAMSULOSIN HCL 0.4 MG CAP PO SCH (10:22)
[2021-08-01] MEDS: MULTIVITAMIN TAB PO SCH (10:22)
[2021-08-01] MEDS: ASPIRIN 81 MG ECTAB PO SCH ×2 (10:22→20:59)
--- NOTE | 2021-08-01 10:42 | Pharmacy Report ---
Pharmacy Glycemic Short Note 2 - Date of Service August 01, 2021 - Glycemic Short BSG Results (Last 24 hours): 08/01/21 05:45 POC Glucose 125 H OUTPATIENT ANTIDIABETIC REGIMEN: * Metformin 500 mg PO BIDM * HbA1c: 5.8% (07/04/21) ASSESSMENT: * BREEZY is a 71 year old male POD #0 s/p left total hip arthroplasty * No perioperative steroids administered * Preoperative BSG of 125 mg/dL * Excellent outpatient glycemic control with metformin based on A1c of 5.8% * Will utilize conservative Novolog postoperatively and plan on resuming metformin tomorrow morning pending labs PLAN FOR INPATIENT GLYCEMIC CONTROL: * Hold outpatient oral diabetes medications * Likely resume metformin in AM * Basal insulin * Hold * Bolus insulin * NovoLog per scale ACHS or Q6hrs while NPO * Goal Range: Low 120 mg/dL - High 150 mg/dL * Correction Factor: 35 mg/dL/unit * Nutritional / Prandial insulin per carb ratio of 1 unit per 12 grams CHO consumed
[2021-08-01] MEDS: SODIUM CHLORIDE 0.9% 1000ML 1,000 ML IV SCH ×2 (12:47→22:35)
[2021-08-01] MEDS: ENALAPRIL MALEATE 10 MG TAB PO SCH (12:47)
[2021-08-01] MEDS: INSULIN ASPART PER UNIT SC SCH ×3 (13:36→20:47)
[2021-08-01] MEDS ORDERED: TRANEXAMIC ACID / 0.7% NACL 1,000 MG/100 ML BAG IV SCH (14:30)
[2021-08-01] MEDS: ACETAMINOPHEN 500 MG TAB PO SCH ×2 (14:57→20:59)
--- NOTE | 2021-08-01 15:03 | Progress Notes ---
DATE OF SERVICE: 08/01/2021 SUBJECTIVE: A 71-year-old gentleman postoperative from a left hip replacement. He is doing quite we ll. Not having any pain yet. No chest pain or shortness of breath. Not feeling dizzy or lightheade d. OBJECTIVE: VITAL SIGNS: Temperature 36.9. Vital signs are stable. PHYSICAL EXAMINATION: GENERAL: Shows a pleasant middle-aged male. He is sitting up in bed, looks quite comfortable. LUNGS: Clear to auscultation. HEART: Regular rate and rhythm. ABDOMEN: Soft, nontender, nondistended. EXTREMITIES: Grossly neurovascularly intact except as follows: Examination of the left leg reveals the leg lengths to be equal. Thigh is soft and supple. Dressing is clean, dry and intact. He can d orsiflex and plantarflex his foot appropriately. He is neurologically intact. X-RAYS: X-rays of the left hip from recovery room are reviewed. It shows a left uncemented total hi p arthroplasty. Components looked to be in good position. No signs of problems. ASSESSMENT: A 71-year-old male postoperative from left hip replacement, doing well. Hip is located. He is neurologically intact. His pain is controlled. PLAN: 1. DVT prophylaxis includes thigh-high TEDs, SCDs, and aspirin twice a day. 2. PT, OT, weightbear as tolerated. Left total hip protocol. 3. Pain control, doing okay with current pain regimen. 4. IV antibiotics x24 hours. 5. Disposition: Plan to discharge to home with some home health likely tomorrow after therapy if he is doing okay. Job ID: [id number]
[2021-08-01] MEDS: ceFAZolin 2000MG 2,000 MG/15 ML SYR IV SCH ×2 (15:14→20:59)
[2021-08-01] MEDS: ASCORBIC ACID 500 MG TAB PO SCH (17:57)
[2021-08-01] MEDS: Scopolamine CHECK PATCH PLACEMENT SCH ×2 (17:57→22:36)
[2021-08-01] MEDS ORDERED: SENNA 8.6 MG TAB PO SCH (21:00)
[2021-08-01] MEDS ORDERED: ATORVASTATIN 10 MG TAB PO SCH (21:00)
[2021-08-02] MEDS: KETOROLAC TROMETHAMINE 15 MG/ML VIAL IV SCH ×2 (00:43→06:04)
[2021-08-02] MEDS ORDERED: METOCLOPRAMIDE HCL INJ 5 MG/ML 2 ML VIAL IV PRN (01:05)
[2021-08-02] MEDS ORDERED: ONDANSETRON INJ 2 MG/ML 2 ML VIAL IV PRN (01:05)
[2021-08-02] MEDS ORDERED: HYDROmorphone INJ 0.5 MG/0.5 ML SYR IV PRN (01:05)
[2021-08-02] MEDS ORDERED: NALOXONE HCL 0.4 MG/1 ML VIAL/CARP IV PRN (01:05)
[2021-08-02] MEDS: traMADol HCL 50 MG TABLET PO PRN ×2 (03:34→12:47)
[2021-08-02] MEDS: ACETAMINOPHEN 500 MG TAB PO SCH (06:04)
[2021-08-02] MEDS: ASCORBIC ACID 500 MG TAB PO SCH (08:04)
[2021-08-02] MEDS: TAMSULOSIN HCL 0.4 MG CAP PO SCH (08:04)
[2021-08-02] MEDS: amLODIPine BESYLATE 5 MG TAB PO SCH (08:04)
[2021-08-02] MEDS: ASPIRIN 81 MG ECTAB PO SCH (08:04)
[2021-08-02] MEDS: Scopolamine CHECK PATCH PLACEMENT SCH (08:05)
[2021-08-02] MEDS: ENALAPRIL MALEATE 10 MG TAB PO SCH (08:05)
[2021-08-02] MEDS: MULTIVITAMIN TAB PO SCH (08:05)
[2021-08-02] MEDS: DOCUSATE SODIUM 100 MG CAP PO SCH (08:08)
[2021-08-02 08:18] LABS: Basophils # (auto) 0.01 K/uL (0-0.2); Basophils % (auto) 0.1 %; Eosinophils # (auto) 0.22 K/uL (0-0.5); Eosinophils % (auto) 2.7 %; Hematocrit (blood only) 35.7 % (42-52); Hemoglobin 12.2 g/dL (14.0-18.0); Immature Granulocytes # (auto) 0.03 K/uL (0.00-0.02); Immature Granulocytes % (auto) 0.4 %; Lymphocytes # (auto) 1.76 K/uL (1.2-3.4); Lymphocytes % (auto) 21.5 %; Mean Corpuscular Hemoglobin 31.9 pg (25-34); Mean Corpuscular Hgb Conc 34.2 g/dL (32-36); Mean Corpuscular Volume 93.5 fL (80-100); Mean Platelet Volume 9.1 fL (7.4-10.4); Monocytes # (auto) 0.72 K/uL (0.11-0.59); Monocytes % (auto) 8.8 %; Neutrophils # (auto) 5.45 K/uL (1.4-6.5); Neutrophils % (auto) 66.5 %; Platelet Count 133 K/uL (130-400); RDW Coefficient of Variation 12.7 % (11.5-14.5); RDW Standard Deviation 42.9 fL (36.4-46.3); Red Blood Count 3.82 M/uL (4.7-6.1); White Blood Count 8.19 K/uL (4.8-10.8)
[2021-08-02] MEDS: INSULIN ASPART PER UNIT SC SCH (08:28)
[2021-08-02 08:40] LABS: BUN Creatinine Ratio 23.9 (10-20); Calcium 8.3 mg/dl (8.5-10.1); Creatinine Clr Calc Pharmacy 117.8 ml/min; Est GFR (African American) 110.2 ml/min; Est GFR (Non-African American) 95.1 ml/min
--- NOTE | 2021-08-02 15:47 | Progress Notes ---
DATE OF NOTE: 08/02/2021. SUBJECTIVE: A 71-year-old gentleman, postoperative day 1 from a left hip replacement. He is doing q uite well. Pain is controlled. No chest pain or shortness of breath. Not feeling dizzy or lighthea ded. OBJECTIVE: VITAL SIGNS: Temperature 37.3. Vital signs are stable. GENERAL: Shows a pleasant middle-aged male. He is sitting up in his bedside chair and looks pretty comfortable today. EXTREMITIES: Examination of the left hip reveals the dressing to be clean, dry and intact. Thigh is soft and supple. Leg lengths were equal. He is neurologically intact. ASSESSMENT: A 71-year-old gentleman, postoperative day 1 from a left hip replacement, doing well. P ain is controlled. Hip is located. He is neurologically intact. PLAN: 1. DVT prophylaxis include thigh-high TEDs, SCDs, and aspirin twice a day. 2. PT, OT, weightbear as tolerated. Left total hip protocol. 3. Pain control, doing okay with current pain regimen. 4. Disposition: Plan to discharge to home with some home health today if he does okay in therapy. Job ID: [id number]
[2021-08-02] MEDS ORDERED: metFORMIN HCL 500 MG TAB PO SCH (17:00)
--- NOTE | 2021-08-03 07:05 | XRay Report ---
AP PELVIS, CROSSTABLE LATERAL LEFT HIP History: Left total hip arthroplasty. Degenerative arthritis. Postop. FINDINGS: The patient is status post a left total hip arthroplasty. The hardware is intact. No fractu re or dislocation. Skin chelsy are in place. IMPRESSION: Left total hip arthroplasty. No evidence for hardware complication. ACT 112: Negative or not required by law. Electronically signed by: Cristhian Elizabeth M.D. 08/01/2021 12:26 PM
--- NOTE | 2021-08-05 18:31 | Discharge Summary ---
Date of Service August 05, 2021 Discharge Data Procedures Performed Operation Date: 08/01/21 07:00 Actual Procedures p Left Total Hip Arthroplasty(Left) - Wolf Varela MD Hospital Course (1) S/P total left hip arthroplasty: This is a 71 year old male admitted on 08/01/21 and underwent total hip arthroplasty. He tolerated the procedure well and there were no complications. Transferred to the PACU post op and later to the orthopedic floor for further care. He was given ancef for antibiotic prophylaxis. He was also given MYA stockings, SCDs, and aspirin for DVT prophylaxis. Hemoglobin, hematocrit, and vital signs were monitored during his hospital stay and remained stable. Did not require any blood transfusions. There were no complications during his hospital stay. By post op day #1 the patient was tolerating a diabetic diet, pain was reasonably controlled with oral pain medicine, and he was participating in physical therapy. On post op day #1 the patient was discharged home and set up with home health care. He was given printed discharge instructions including prescriptions for extra strength tylenol, aspirin, toradol, zofran, flomax, and tramadol. Continue physical therapy, weight bearing as tolerated. Continue hip precautions. Continue MYA stockings. Follow up approximately 2 weeks post op or sooner if there are problems or concerns. Coding Level of Care Code None Diagnoses S/P total left hip arthroplasty Z96.642
== END 2021-08-02 14:39 | disposition home health service (06) ==
LOC: PACUINP 05:05 → ASU 05:05 → 3E 11:12